=== PATIENT | female | born 1940 | race Two or more races ===

== ENCOUNTER 2016-08-04 10:12 | Emergency (ER) | payer MEDICARE, OTHER ==
[~2016-08-04] VITALS: Ht 157.5 cm; Wt 82.0 kg
[2016-08-04] MEDS ORDERED: PLEASE ENTER ALLERGIES MC SCH ×2 (10:30)
[2016-08-04] MEDS ORDERED: HYDROcodone/APAP 5/325 TABLET PO ONE (10:30)
[2016-08-04] MEDS ORDERED: PLEASE ENTER HEIGHT AND WEIGHT MC SCH (10:30)
[2016-08-04] MEDS ORDERED: HYDROcodone/APAP 5/325 TABLET ONE (10:32)
[2016-08-04 11:15] VITALS: BP 133/57
== END 2016-08-04 11:58 | disposition home or self-care (01) ==
LOC: ED 11:52
DX: S16.1XXA Strain of muscle, fascia and tendon at neck level, initial encounter (principal); S51.801A Unspecified open wound of right forearm, initial encounter; E11.9 Type 2 diabetes mellitus without complications; E78.00 Pure hypercholesterolemia, unspecified; I11.0 Hypertensive heart disease with heart failure; E07.9 Disorder of thyroid, unspecified; W19.XXXA Unspecified fall, initial encounter; Y93.89 Activity, other specified; Y92.59 Other trade areas as the place of occurrence of the external cause; Y99.8 Other external cause status
CPT/HCPCS: 70450; 72125; 99284